=== PATIENT | female | born 1965 | race Caucasian/White ===

== ENCOUNTER 2017-03-11 12:37 | Emergency (ER) | payer MEDICAID ==
[~2017-03-11] VITALS: Ht 157.5 cm; Wt 68.2 kg
[2017-03-11] MEDS ORDERED: HYDROCODONE/ACETAMINOPHEN 5-325 MG TABLET PO ONE (14:30)
[2017-03-11] MEDS ORDERED: KETOROLAC TROMETHAMINE 60 MG/2 ML VIAL IM ONE (15:15)
[2017-03-11 15:20] VITALS: BP 132/85
== END 2017-03-11 15:48 | disposition home or self-care (01) ==
LOC: EEVIPCON 12:42 → EMS 12:42
DX: M25.561 Pain in right knee (principal); M79.1 Myalgia; Z96.651 Presence of right artificial knee joint; Z88.8 Allergy status to other drugs, medicaments and biological substances
CPT/HCPCS: 93971; 96372; 99284; J1885